=== PATIENT | male | born 1940 | race Caucasian/White ===

== ENCOUNTER 2021-07-07 18:19 | Inpatient (IN) | payer MEDICARE ==
[~2021-07-07] VITALS: Ht 170.2 cm; Wt 65.3 kg
[2021-07-07] MEDS ORDERED: ACETAMINOPHEN ES 500 MG TABLET PO ONE (19:00)
[2021-07-07] MEDS ORDERED: ACETAMINOPHEN ES 500 MG TABLET ONE (19:10)
--- NOTE | 2021-07-07 19:21 | NUR ---
COVID AND FLU SWAB COLLECTED AND SENT TO LAB
--- NOTE | 2021-07-07 19:34 | NUR ---
URINE COLLECTED AND SENT TO LAB
--- NOTE | 2021-07-07 19:50 | NUR ---
LAB NOTIFIED PT COVID POSITIVE
--- NOTE | 2021-07-07 19:58 | NUR ---
PT COVID + PER LAB.
[2021-07-07 20:02] LABS: BASOPHILS % (AUTO) 0.5 % (0.0-2.0); EOSINOPHILS % (AUTO) 0.7 % (0.0-6.0); HEMATOCRIT 40 % (39-51); HEMOGLOBIN 13.2 g/dL (13.5-17.5); LYMPHOCYTES # (AUTO) 1.6 K/uL (0.8-4.8); LYMPHOCYTES % (AUTO) 25.2 % (20.0-44.0); MEAN CORPUSCULAR HGB CONC 33 g/dl (31.0-36.0); MEAN CORPUSCULAR VOLUME 83 fL (80-96); MONOCYTES % (AUTO) 15.7 % (2.0-12.0); NEUTROPHILS # (AUTO) 3.8 K/uL (1.8-8.9); NEUTROPHILS % (AUTO) 57.9 % (43.0-81.0); PLATELET COUNT (AUTO) 206 K/uL (150-450); RED BLOOD CELL COUNT(AUTO) 4.82 MIL/uL (4.5-6.0); WHITE BLOOD COUNT (AUTO) 6.5 K/uL (4.3-11.0)
[2021-07-07 20:03] LABS: BILIRUBIN,URINE NEGATIVE (NEGATIVE); COLOR,URINE YELLOW (YELLOW); LEUKOCYTE ESTERASE ,URINE NEGATIVE (NEGATIVE); NITRITE, URINE NEGATIVE (NEGATIVE); PH,URINE 5.5 (5.0-8.0); PROTEIN,URINE NEGATIVE (NEGATIVE); UGLUCOSE NEGATIVE (NEGATIVE); UROBILINOGEN,URINE 0.2 EU/dL (0.2)
[2021-07-07 20:10] LABS: CALCIUM, SERUM 8.6 mg/dL (8.5-10.1); CARBON DIOXIDE 10 mmol/L (21-32); CHLORIDE 95 mmol/L (98-107); CREATININE 1.9 mg/dL (0.6-1.3); POTASSIUM 4.5 mmol/L (3.5-5.1); SODIUM SERUM 130 mmol/L (136-145); UREA NITROGEN, BLOOD 33 mg/dL (7-18)
[2021-07-07 20:14] LABS: CREATINE KINASE, TOTAL 47 U/L (39-308)
[2021-07-07 20:16] LABS: GLUCOSE 26 mg/dL (74-106)
[2021-07-07 20:17] LABS: BACTERIA,URINE None seen /HPF (None Seen); SQUAMOUS EPITHELIAL CELL,UR 0-2 /HPF (None Seen); WBC,URINE 0-2 /HPF (0-3)
[2021-07-07 20:20] LABS: ALANINE AMINOTRANSFERASE 13 U/L (12-78); ALKALINE PHOSPHATASE 16 U/L (46-116); ASPARTATE AMINOTRANSFERASE 13 U/L (15-37)
[2021-07-07 20:21] LABS: ALBUMIN 3.9 g/dL (3.4-5.0)
[2021-07-07] MEDS ORDERED: DEXTROSE 50%-WATER 50 ML DISP.SYRIN ONE (20:22)
--- NOTE | 2021-07-07 20:26 | NUR ---
[facility] [phone]
[2021-07-07 20:30] LABS: BAND % (MANUAL) 3 % (0.0-5.0); LYMPHOCYTES % (MANUAL) 16 % (16-48); MONOCYTES % (MANUAL) 12 % (0-11.0); NEUTROPHILS % (MANUAL) 69 (42-76)
[2021-07-07] MEDS ORDERED: DEXTROSE 50%-WATER 50 ML DISP.SYRIN IVP ONE (20:30)
[2021-07-07 20:35] LABS: TOTAL PROTEIN, SERUM 7.4 g/dL (6.4-8.2)
--- NOTE | 2021-07-07 21:22 | NUR ---
ROOM [facility]
--- NOTE | 2021-07-07 21:59 | NUR ---
CALLED TO GIVE REPORT THE RN NOT READY.
[2021-07-07] MEDS ORDERED: ONDANSETRON HCL/PF 4 MG/2 ML VIAL IVP PRN (22:00)
[2021-07-07] MEDS ORDERED: ACETAMINOPHEN 325 MG TABLET PO PRN (22:00)
--- NOTE | 2021-07-07 22:31 | NUR ---
REPORT GIVEN TO ANGELIA WOODALL FOR [facility]
--- NOTE | 2021-07-07 22:47 | NUR ---
PT TRANSERRED TO [facility] VIA ACLS PROTOCOL.
[2021-07-07 22:54] VITALS: BP 109/53
--- NOTE | 2021-07-07 22:55 | NUR ---
RN NOTES ADMITTED A 80 Y/O MALE PATIENT FROM ER A/O X4 ABLE TO MAKE NEEDS KNOWN WITH DIAGNOSIS OF COVID 19 SECONDARY TO VITO. WITH IV ACCESS ON R AC G#20 PATENT FLUSHES WELL. PATIENT NOT ON DISTRESS NO SOB NO PAIN NOTED AT THIS TIME. VITAL SIGNS TAKEN AND RECORDED. AFEBRILE. PATIENT ON ROOM AIR SATING 99%. ALL SAFETY MEASURES IN PLACE AT ALL TIMES, BOTH SIDE RAILS UP FOR SAFETY. CALL LIGHT WITHIN REACH. BODY ASSESSMENT DONE. SKIN INTACT. ALL BELONGINGS CHECKED AND ACCOUNTED. WILL CONTINUE TO MONITOR
[2021-07-08] MEDS ORDERED: IV NS 0.9% 1,000 ML IV PRN (01:00)
[2021-07-08 04:00] VITALS: BP 111/72
--- NOTE | 2021-07-08 06:45 | NUR ---
RN NOTES PATIENT REMAINS STABLE NO SIGNIFICANT CHANGES IN HEALTH CONDITION. NO DESATURATION O2 SAT 98% ON ROOM AIR. NO SOB NOT IN DISTRESS. AFEBRILE ALL SAFETY MEASURES IN PLACE AT ALL TIMES. HOB ELEVATED, CALL LIGHT WITHIN REACH. BED ON LOWEST POSITION AND LOCKED. ALL NEEDS ATTENDED PROMPTLY. WILL CONTINUE TO MONITOR
[2021-07-08 07:14] LABS: C-REACTIVE PROTEIN 5.4 mg/dL (0.0-0.9)
[2021-07-08] MEDS ORDERED: ALLO100T PO (07:19)
[2021-07-08] MEDS ORDERED: LISI20TA30 PO (07:19)
[2021-07-08] MEDS ORDERED: BEMP180T PO (07:19)
[2021-07-08] MEDS ORDERED: CARV3.122 PO (07:19)
--- NOTE | 2021-07-08 07:30 | NUR ---
RN NOTE PT RECEIVED A/O X4 ABLE TO MAKE NEEDS KNOWN WITH DIAGNOSIS OF COVID 19 SECONDARY TO VITO. WITH IV ACCESS ON R AC G#20 PATENT FLUSHES WELL. PATIENT NOT ON DISTRESS NO SOB NO PAIN NOTED AT THIS TIME. AFEBRILE. PATIENT ON ROOM AIR SATING 99%. ALL SAFETY MEASURES IN PLACE AT ALL TIMES, BOTH SIDE RAILS UP FOR SAFETY. CALL LIGHT WITHIN REACH. WILL CONTINUE TO MONITOR
[2021-07-08 08:00] VITALS: BP 118/64
[2021-07-08] MEDS ORDERED: HEPARIN SODIUM, PORCINE 5000 UNITS/1 ML VIAL SQ SCH (09:00)
[2021-07-08 11:16] LABS: CALCIUM, SERUM 8.7 mg/dL (8.5-10.1); CARBON DIOXIDE 23 mmol/L (21-32); CHLORIDE 97 mmol/L (98-107); CREATININE 1.9 mg/dL (0.6-1.3); GLUCOSE 77 mg/dL (74-106); POTASSIUM 4.9 mmol/L (3.5-5.1); SODIUM SERUM 133 mmol/L (136-145); UREA NITROGEN, BLOOD 34 mg/dL (7-18)
[2021-07-08 12:47] VITALS: BP 118/64
--- NOTE | 2021-07-08 15:31 | NUR ---
patient wants to go home liat samaniego made aware and ok to discharge home home quarantine.
[2021-07-08] MEDS ORDERED: AZITHROMYCIN 250 MG TABLET PO SCH (22:00)
== END 2021-07-08 16:15 | disposition home or self-care (01) | DRG 177 ==
LOC: ER 18:50 → TELE1 22:55 → MEDSG1 23:02
PROVIDERS: ADMIT Registered Nurse; ATTEND Nurse Practitioner Acute Care
DX: U07.1 COVID-19 (principal); J12.82 Pneumonia due to coronavirus disease 2019; G92.8 Other toxic encephalopathy; E87.1 Hypo-osmolality and hyponatremia; E87.2 Acidosis; E16.2 Hypoglycemia, unspecified; E78.5 Hyperlipidemia, unspecified; I10 Essential (primary) hypertension; K21.9 Gastro-esophageal reflux disease without esophagitis; E78.00 Pure hypercholesterolemia, unspecified; Z79.899 Other long term (current) drug therapy; E86.0 Dehydration
CPT/HCPCS: 36415; 71045-TC; 80048-TC; 80053-TC; 80061-TC; 81001; 82550-TC; 82728-TC; 82962-TC; 83605-TC; 83615-TC; 84484-TC; 85025-TC; 85378-TC; 86140-TC; 87081-TC; 97116-TC; 97530-TC; C9803; G0378; J1644; J7030; U0003

== ENCOUNTER 2023-09-13 08:34 | Emergency (ER) | payer MEDICARE, OTHER ==
[~2023-09-13] VITALS: Ht 162.6 cm; Wt 63.5 kg
[~2023-09-13 08:34] MED LIST: ALLO100T PO; BEMP180T PO; CARV3.122 PO; LISI20TA30 PO
[2023-09-13 08:42] VITALS: TEMP 98.1
[2023-09-13 09:40] LABS: BASOPHILS % (AUTO) 0.5 % (0.0-2.0); EOSINOPHILS # (AUTO) 0.1 K/uL (0.0-0.7); HEMATOCRIT 44 % (39-51); HEMOGLOBIN 14.1 g/dL (13.5-17.5); LYMPHOCYTES # (AUTO) 2.2 K/uL (0.8-4.8); LYMPHOCYTES % (AUTO) 33.1 % (20.0-44.0); MEAN CORPUSCULAR HEMOGLOBIN 27 PG (26.0-33.0); MEAN CORPUSCULAR HGB CONC 32 g/dl (31.0-36.0); MEAN CORPUSCULAR VOLUME 83 fL (80-96); MONOCYTES # (AUTO) 0.5 K/uL (0.1-1.30); MONOCYTES % (AUTO) 8.1 % (2.0-12.0); NEUTROPHILS # (AUTO) 3.7 K/uL (1.8-8.9); NEUTROPHILS % (AUTO) 56.3 % (43.0-81.0); PLATELET COUNT (AUTO) 299 K/uL (150-450); RED BLOOD CELL COUNT(AUTO) 5.25 MIL/uL (4.5-6.0); RED CELL DISTRIBUTION WIDTH 14.1 % (11.5-15.0); WHITE BLOOD COUNT (AUTO) 6.7 K/uL (4.3-11.0)
[2023-09-13 09:55] LABS: CALCIUM, SERUM 9.3 mg/dL (8.5-10.1); CARBON DIOXIDE 19 mmol/L (21-32); CHLORIDE 100 mmol/L (98-107); CREATININE 1.6 mg/dL (0.6-1.3); GLUCOSE 95 mg/dL (74-106); POTASSIUM 4.3 mmol/L (3.5-5.1); SODIUM SERUM 134 mmol/L (136-145); UREA NITROGEN, BLOOD 33 mg/dL (7-18)
[2023-09-13] MEDS ORDERED: ONDA4TAB5 PO (10:47)
[2023-09-13] MEDS ORDERED: ONDANSETRON 4 MG TAB.RAPDIS ONE (11:03)
[2023-09-13] MEDS: ONDANSETRON 4 MG TAB.RAPDIS SL ONE (11:05)
[2023-09-13 12:16] VITALS: BP 135/65; O2SAT 99
== END 2023-09-13 12:00 | disposition home or self-care (01) ==
LOC: ER 08:57
DX: R11.2 Nausea with vomiting, unspecified (principal); I10 Essential (primary) hypertension; E78.00 Pure hypercholesterolemia, unspecified; K21.9 Gastro-esophageal reflux disease without esophagitis; Z88.0 Allergy status to penicillin
CPT/HCPCS: 99285; 71045; 93005; 72170; 85025; 80048; 36415; 84484; 82962; Q0162